=== PATIENT | male | born 1980 | race Caucasian/White ===

== ENCOUNTER 2019-03-14 20:47 | Observation (INO) | payer OTHER, SELFPAY ==
[2019-03-14 20:50] VITALS: BP 128/77; PULSE 123; RESP 33; TEMP 36.9; O2SAT 98; BMI 20.9
--- NOTE | 2019-03-14 21:19 | DI.RAD.S_ITS ---
PROCEDURE: XR CHEST 1V INDICATIONS: chest pain TECHNIQUE: One view of the chest was acquired. COMPARISON: None. FINDINGS: Surgical changes and devices: None. Lungs and pleura: Lungs are clear. No pleural effusions or pneumothorax. Mediastinum: Mediastinal contours appear normal. Heart size is normal. Bones and chest wall: No suspicious bony lesions. Overlying soft tissues appear unremarkable. IMPRESSION: No acute process. Dictated by: Wojciech Norris M.D. on 03/14/2019 at 21:40 Approved by: Wojciech Norris M.D. on 03/14/2019 at 21:40
[2019-03-14 21:27] LABS: Add Manual Diff / Slide Review NO; Basophils Absolute Auto 0 /uL (0-100); Basophils Percent Auto 0.3 % (0-2); Eosinophils Absolute Auto 0 /uL (0-450); Eosinophils Percent Auto 0.1 % (2-4); Hemoglobin 14.4 g/dL (13.5-17.5); Lymphocytes Absolute Auto 200 /uL (1100-4500); Lymphocytes Percent Auto 1.2 % (25-40); Mean Corpuscular HGB Conc 33.5 % (30-36); Mean Corpuscular Hemoglobin 31.4 PG (26-34); Mean Corpuscular Volume 93.5 fL (80-100); Monocytes Absolute Auto 100 /uL (0-900); Monocytes Percent Auto 0.7 % (3-14); Neutrophils Absolute Auto 12400 /uL (1500-7000); Neutrophils Percent Auto 97.7 % (50-75); Platelet Count 114 X10^3/uL (150-400); White Blood Cell Count 12.7 X10^3/uL (4.5-11.0)
--- NOTE | 2019-03-14 21:27 | ED.ARRPALP ---
HPI - Arrhythmia/Palpitations General Chief Complaint: Arrhythmia/Palpitations Stated Complaint: HEART PALPITATIONS, DIZZINESS, SHORT OF BREATH Time Seen by Provider: 03/14/19 20:58 Source: patient Mode of arrival: ambulatory Limitations: no limitations History of Present Illness HPI narrative: Patient is a 38-year-old male with history of depression who presents heart palpitations. He states that 2 days ago the mother of his child said she did not want to be together anymore. He was kicked out of the house. Over the last 2 days he has been intravenously injected phenylethylamine. He has gone through a box of 100 insulin syringes. He says he has been doing every hour. His last use was 2 hours ago. He has been diluting it with water. He has obvious track hyman. He denies any other drug use and previous intravenous drug use. No previous history of suicide. He states he does not want to kill himself now but still feels extremely sad. And is willing and wanting help at this time. MD complaint: rapid heart beat Duration: constant Related Data Allergies Allergy/AdvReac Type Severity Reaction Status Date / Time No Known Drug Allergies Allergy Verified 03/14/19 21:04 Review of Systems Review of Systems ROS Unobtainable: All systems reviewed & are unremarkable except as noted in HPI and below Constitutional Denies chills, Denies fever(s), Denies lethargy and Denies weakness Eyes Denies change in vision, Denies eye discharge, Denies irritation and Denies loss of vision ENT Ears, Nose, Mouth, and Throat: Denies change in voice, Denies neck pain and Denies sore throat Cardiovascular Reports as per HPI, Denies dyspnea and Denies dyspnea on exertion Respiratory Denies cough, Denies dyspnea, Denies dyspnea on exertion and Denies wheezing Gastrointestinal Gastrointestinal: Denies abdominal pain, Denies change in bowel habits, Denies diarrhea, Denies nausea and Denies vomiting Genitourinary Denies hematuria, Denies flank pain, Denies urinary incontinence and Denies urinary urgency Musculoskeletal Denies neck pain Integumentary/Breasts Reports as per HPI Neurologic Denies loss of vision and Denies weakness Psychiatric Reports as per HPI Allergic/Immunologic Denies wheezing [facility] Medical History Depression (Acute) Social History (Updated 03/14/19 @ 21:31 by Denise Su DO) Smoking Status: Current some day smoker substance use type: does not use Social History Smoking Status: Current some day smoker substance use type: does not use Exam Initial Vital Signs Initial Vital Signs: Vital Signs Temperature 98.5 F 03/14/19 20:50 Pulse Rate 123 H 03/14/19 20:50 Respiratory Rate 33 H 03/14/19 20:50 Blood Pressure 128/77 03/14/19 20:50 Pulse Oximetry 98 03/14/19 20:50 GENERAL: Tearful slightly diaphoretic HEENT: Head atraumatic,EOMI, pupils reactive, face symmetric, moist mucous membranes CARDIOVASCULAR: Tachycardic regular, no murmur RESPIRATORY: Breath sounds equal bilaterally, no wheezes rales or rhonchi. ABDOMEN: Soft, nontender. Normoactive bowel sounds all 4 quadrants. No guarding or rebound. EXTREMITIES: Normal range of motion, no clubbing or edema. Neurovascularly intact NEUROLOGICAL: Alert and oriented x4.Normal gait and speech. SKIN: Intravenous track hyman noted on arms and legs no significant erythema no abscess is Course Orders Ordered: ED Orders 03/14/19 21:00 Acetaminophen Stat Complete Blood Count AUTO DIFF Stat Comprehensive Metabolic Panel Stat Ethanol (ETOH) Stat Hepatic (Liver) Panel Stat Lipase Stat Procalcitonin Stat Salicylate Stat Troponin & CK Cardiac Panel Stat 03/14/19 21:19 XR chest 1V Stat 03/14/19 21:30 Lactate (Lactic Acid) Stat 03/14/19 23:00 Urine Drug Screen, Rapid Stat 03/14/19 23:03 Blood Culture Stat 03/15/19 00:30 Alanine Aminotransferase Stat Aspartate Aminotransferase Stat Partial Thromboplastin Time Stat Prothrombin Time INR Stat Troponin I Stat Sodium Chloride (Normal Saline 0.9%) 1,000 mls @ 1,000 mls/hr IV CONT KAREN Last Infusion: 03/14/19 23:01 Dose: 0 mls/hr Admin: 03/14/19 21:34 Dose: 1,000 mls/hr Discontinued Medications Vancomycin HCl (Vancomycin) 1,000 mg in 200 mls @ 200 mls/hr IV NOW ONE Stop: 03/15/19 01:21 Last Admin: 08/28/19 00:33 Dose: 200 mls/hr Lorazepam (Ativan) 1 mg IV NOW ONE Stop: 03/14/19 21:24 Last Admin: 03/14/19 21:33 Dose: 1 mg Consultations Consultation #1: Poison control contacted. His this is a stimulant. Actually is very short-acting if injected intravenously. Recommend watching for a few hours treating with benzos in IV fluids supportive care. Time: 21:32 Vital Signs - 8 hr 03/14/19 20:50 03/14/19 22:40 03/14/19 23:46 Temperature 98.5 F 99.1 F Pulse Rate 123 H 105 H 105 H Respiratory Rate 33 H 16 25 H Blood Pressure 128/77 Blood Pressure [Right Arm] 110/68 116/61 Pulse Oximetry 98 95 100 03/15/19 01:00 03/15/19 01:59 Temperature Pulse Rate 97 H 98 H Respiratory Rate 21 19 Blood Pressure Blood Pressure [Right Arm] 102/57 L 102/57 L Pulse Oximetry 95 MDM - Arrhythmia/Palpitations Lab Data Attestation: I reviewed the patient's lab results. Result diagrams: 03/14/19 21:00 03/14/19 21:00 Lab Results 03/14/19 03/14/19 03/14/19 Range/Units 21:00 21:00 21:00 WBC 12.7 H (4.5-11.0) X10^3/uL RBC 4.60 (4.5-5.9) X10^6/uL Hgb 14.4 (13.5-17.5) g/dL Hct 43.0 (41-53) % MCV 93.5 (80-100) fL MCH 31.4 (26-34) PG MCHC 33.5 (30-36) % RDW 13.0 (11.6-14.8) % Plt Count 114 L (150-400) X10^3/uL Neut % (Auto) 97.7 H (50-75) % Lymph % (Auto) 1.2 L (25-40) % [place] % (Auto) 0.7 L (3-14) % Eos % (Auto) 0.1 L (2-4) % Baso % (Auto) 0.3 (0-2) % Neut # (Auto) 26485 H (2388-1050) /uL Lymph # (Auto) 200 L (9253-8825) /uL [place] # (Auto) 100 (0-900) /uL Eos # (Auto) 0 (0-450) /uL Baso # (Auto) 0 (0-100) /uL PT (10.1-12.7) SECONDS INR (0.9-1.3) APTT (26.4-36.2) SECONDS Sodium 134 L (137-145) mmol/L Potassium 4.5 (3.4-5.1) mmol/L Chloride 101 (98-107) mmol/L Carbon Dioxide 24 (22-32) mmol/L BUN 11 (9-20) mg/dL Creatinine 0.70 (0.66-1.25) mg/dL Estimated GFR > 60.0 (>60) mL/min BUN/Creatinine Ratio 15.7 (6-22) Glucose 115 H (70-100) mg/dL Lactate (0.7-2.1) mmol/L Calcium 8.8 (8.4-10.2) mg/dL Total Bilirubin 0.6 (0.2-1.3) mg/dL Conjugated Bilirubin 0.0 (0.0-0.3) md/dL Unconjugated Bilirubin 0.4 (0.0-1.1) mg/dL AST 84 H (17-59) IU/L ALT 60 (21-72) IU/L Alkaline Phosphatase 65 (38-126) U/L Total Creatine Kinase 294 H (55-170) U/L CK-MB (CK-2) 4.23 H (<2.37) ng/mL CK-MB (CK-2) Rel Index 1.4 L (1.5-5.0) % Troponin I < 0.012 (0.01-0.034) ng/mL Total Protein 6.1 L (6.3-8.2) g/dL Albumin 3.5 (3.5-5.0) g/dL Globulin 2.6 (1.7-4.1) g/dL Albumin/Globulin Ratio 1.3 (1.0-2.8) Lipase 356 H (23-300) U/L Procalcitonin 36.52 H (<0.5) ng/mL Salicylates < 1.0 (<20) mg/dL Urine Opiates Screen (Negative) Ur Oxycodone Screen (Negative) Urine Methadone Screen (Negative) Acetaminophen < 10 L (10-30) ug/mL Ur Barbiturates Screen (Negative) U Tricyclic Antidepress (Negative) Ur Phencyclidine Scrn (Negative) Ur Amphetamines Screen (Negative) U Methamphetamines Scrn (Negative) Ur MDMA Scrn (Ecstasy) (Negative) U Benzodiazepines Scrn (Negative) Urine Cocaine Screen (Negative) U Marijuana (THC) Screen (Negative) Ethyl Alcohol < 10 ( - 10) mg/dL 03/14/19 03/14/19 03/15/19 Range/Units 21:30 23:00 00:30 WBC (4.5-11.0) X10^3/uL RBC (4.5-5.9) X10^6/uL Hgb (13.5-17.5) g/dL Hct (41-53) % MCV (80-100) fL MCH (26-34) PG MCHC (30-36) % RDW (11.6-14.8) % Plt Count (150-400) X10^3/uL Neut % (Auto) (50-75) % Lymph % (Auto) (25-40) % [place] % (Auto) (3-14) % Eos % (Auto) (2-4) % Baso % (Auto) (0-2) % Neut # (Auto) (7047-7038) /uL Lymph # (Auto) (5297-1111) /uL [place] # (Auto) (0-900) /uL Eos # (Auto) (0-450) /uL Baso # (Auto) (0-100) /uL PT 14.9 H (10.1-12.7) SECONDS INR 1.3 (0.9-1.3) APTT 32 (26.4-36.2) SECONDS Sodium (137-145) mmol/L Potassium (3.4-5.1) mmol/L Chloride (98-107) mmol/L Carbon Dioxide (22-32) mmol/L BUN (9-20) mg/dL Creatinine (0.66-1.25) mg/dL Estimated GFR (>60) mL/min BUN/Creatinine Ratio (6-22) Glucose (70-100) mg/dL Lactate 1.6 (0.7-2.1) mmol/L Calcium (8.4-10.2) mg/dL Total Bilirubin (0.2-1.3) mg/dL Conjugated Bilirubin (0.0-0.3) md/dL Unconjugated Bilirubin (0.0-1.1) mg/dL AST (17-59) IU/L ALT (21-72) IU/L Alkaline Phosphatase (38-126) U/L Total Creatine Kinase (55-170) U/L CK-MB (CK-2) (<2.37) ng/mL CK-MB (CK-2) Rel Index (1.5-5.0) % Troponin I (0.01-0.034) ng/mL Total Protein (6.3-8.2) g/dL Albumin (3.5-5.0) g/dL Globulin (1.7-4.1) g/dL Albumin/Globulin Ratio (1.0-2.8) Lipase (23-300) U/L Procalcitonin (<0.5) ng/mL Salicylates (<20) mg/dL Urine Opiates Screen Negative (Negative) Ur Oxycodone Screen Negative (Negative) Urine Methadone Screen Negative (Negative) Acetaminophen (10-30) ug/mL Ur Barbiturates Screen Negative (Negative) U Tricyclic Antidepress Negative (Negative) Ur Phencyclidine Scrn Negative (Negative) Ur Amphetamines Screen Negative (Negative) U Methamphetamines Scrn Negative (Negative) Ur MDMA Scrn (Ecstasy) Negative (Negative) U Benzodiazepines Scrn Positive H (Negative) Urine Cocaine Screen Negative (Negative) U Marijuana (THC) Screen Positive H (Negative) Ethyl Alcohol ( - 10) mg/dL 03/15/19 Range/Units 00:30 WBC (4.5-11.0) X10^3/uL RBC (4.5-5.9) X10^6/uL Hgb (13.5-17.5) g/dL Hct (41-53) % MCV (80-100) fL MCH (26-34) PG MCHC (30-36) % RDW (11.6-14.8) % Plt Count (150-400) X10^3/uL Neut % (Auto) (50-75) % Lymph % (Auto) (25-40) % [place] % (Auto) (3-14) % Eos % (Auto) (2-4) % Baso % (Auto) (0-2) % Neut # (Auto) (6488-3481) /uL Lymph # (Auto) (0642-5897) /uL [place] # (Auto) (0-900) /uL Eos # (Auto) (0-450) /uL Baso # (Auto) (0-100) /uL PT (10.1-12.7) SECONDS INR (0.9-1.3) APTT (26.4-36.2) SECONDS Sodium (137-145) mmol/L Potassium (3.4-5.1) mmol/L Chloride (98-107) mmol/L Carbon Dioxide (22-32) mmol/L BUN (9-20) mg/dL Creatinine (0.66-1.25) mg/dL Estimated GFR (>60) mL/min BUN/Creatinine Ratio (6-22) Glucose (70-100) mg/dL Lactate (0.7-2.1) mmol/L Calcium (8.4-10.2) mg/dL Total Bilirubin (0.2-1.3) mg/dL Conjugated Bilirubin (0.0-0.3) md/dL Unconjugated Bilirubin (0.0-1.1) mg/dL AST 109 H (17-59) IU/L ALT 68 (21-72) IU/L Alkaline Phosphatase (38-126) U/L Total Creatine Kinase (55-170) U/L CK-MB (CK-2) (<2.37) ng/mL CK-MB (CK-2) Rel Index (1.5-5.0) % Troponin I < 0.012 (0.01-0.034) ng/mL Total Protein (6.3-8.2) g/dL Albumin (3.5-5.0) g/dL Globulin (1.7-4.1) g/dL Albumin/Globulin Ratio (1.0-2.8) Lipase (23-300) U/L Procalcitonin (<0.5) ng/mL Salicylates (<20) mg/dL Urine Opiates Screen (Negative) Ur Oxycodone Screen (Negative) Urine Methadone Screen (Negative) Acetaminophen (10-30) ug/mL Ur Barbiturates Screen (Negative) U Tricyclic Antidepress (Negative) Ur Phencyclidine Scrn (Negative) Ur Amphetamines Screen (Negative) U Methamphetamines Scrn (Negative) Ur MDMA Scrn (Ecstasy) (Negative) U Benzodiazepines Scrn (Negative) Urine Cocaine Screen (Negative) U Marijuana (THC) Screen (Negative) Ethyl Alcohol ( - 10) mg/dL Urine Dip Bedside Urine Glucose Negative Bedside Urine Ketone - Negative Urine Specific Brow[place] 1.010 Bedside Urine Occult Blood - Negative Bedside Urine pH 6.0 Bedside Urine Protein - Negative Bedside Urine Urobilinogen - Negative Bedside Urine Nitrite - Negative Bedside Urine Leukocytes - Negative Esterase MDM Narrative Medical decision making narrative: Patient is actually quite tachycardic and upset initially. This is possibly emotional and drug use related. His heart rate improved with IV fluids and 1 dose of Ativan. At this time he does not need any sort of involuntary criteria, he is requesting help and willing and able to go to mental health facility once medically cleared. The patient has mild leukocytosis of 12 temperature is slowly rising but still remained afebrile he still appears slightly diaphoretic procalcitonin significantly elevated at 36. Patient is extremely high risk for bacteremia. He has had multiple injections over 100 in the last all 2 days. He has also been mixing this powder with water. Flory BLANC, has been updated on patient's symptoms test results. I expressed my concern for possible bacteremia with history and significant procalcitonin. She requests repeat AST, ALT and troponin be checked prior to admission. I have done these and called and updated her on results. AST has slightly elevated from 84-109 however ALT has remained about the same. Patient remained stable heart rate has improved to the 90s blood pressure remains to with a systolic in the low 100s. She agrees to observation. Discharge Plan Departure Patient Disposition: Admitted as Observation Clinical Impression: SIRS (systemic inflammatory response syndrome) Overdose Qualifiers: Encounter type: initial encounter Injury intent: intentional self-harm Qualified Code(s): T50.902A - Poisoning by unspecified drugs, medicaments and biological substances, intentional self-harm, initial encounter Admit Date/Time: 03/15/19 01:22 Admit Provider: Samson Ruth
[2019-03-14] MEDS: LORazepam 2 MG/ML INJ 1 MG IV (21:33)
[2019-03-14 21:34] LABS: Alanine Aminotransferase 60 IU/L (21-72); Albumin 3.5 g/dL (3.5-5.0); Albumin Globulin Ratio 1.3 (1.0-2.8); Alkaline Phosphatase 65 U/L (38-126); Aspartate Aminotransferase 84 IU/L (17-59); BUN Creatinine Ratio 15.7 (6-22); Bilirubin Total 0.6 mg/dL (0.2-1.3); Bilirubin Unconjugated 0.4 mg/dL (0.0-1.1); Blood Urea Nitrogen 11 mg/dL (9-20); Calcium 8.8 mg/dL (8.4-10.2); Carbon Dioxide 24 mmol/L (22-32); Chloride 101 mmol/L (98-107); Creatine Kinase 294 U/L (55-170); Estimated Glomerular Filt Rate > 60.0 mL/min (>60); Globulin 2.6 g/dL (1.7-4.1); Glucose 115 mg/dL (70-100); HEMOLYSIS 19 (0-50); Lipase 356 U/L (23-300); Potassium 4.5 mmol/L (3.4-5.1); Sodium 134 mmol/L (137-145); Total Protein 6.1 g/dL (6.3-8.2)
[2019-03-14] MEDS: SODIUM CHLORIDE 0.9% 1,000 ML 1000 ML IV (21:34)
[2019-03-14 21:41] LABS: Acetaminophen < 10 ug/mL (10-30); Ethanol (ETOH) < 10 mg/dL; Salicylate < 1.0 mg/dL (<20)
[2019-03-14 21:44] LABS: Lactate (Lactic Acid) 1.6 mmol/L (0.7-2.1)
[2019-03-14 21:44] LABS: Troponin I < 0.012 ng/mL (0.01-0.034)
[2019-03-14 21:54] LABS: Procalcitonin 36.52 ng/mL (<0.5)
[2019-03-14 21:55] LABS: CKMB % Relative Index 1.4 % (1.5-5.0); Creatine Kinase MB 4.23 ng/mL (<2.37)
[2019-03-14 22:40] VITALS: BP 110/68; PULSE 105; RESP 16; TEMP 37.3; O2SAT 95
[2019-03-14 23:14] LABS: Urine Amphetamines Negative (Negative); Urine Barbiturates Negative (Negative); Urine Benzodiazepines Positive (Negative); Urine Cocaine Negative (Negative); Urine MDMA Negative (Negative); Urine Methadone Negative (Negative); Urine Methamphetamines Negative (Negative); Urine Morphine/Opi cutoff 2000 Negative (Negative); Urine Oxycodone Negative (Negative); Urine Phencyclidine Negative (Negative); Urine Tetrahydrocannabinol Positive (Negative); Urine Tricyclic Antidepressant Negative (Negative)
[2019-03-14 23:46] VITALS: BP 116/61; PULSE 105; RESP 25; O2SAT 100
[2019-03-15] VITALS (8 sets, daily range): BP systolic 99–140; BP diastolic 45–60; PULSE 81–98; RESP 18–21; TEMP 36.8–38; O2SAT 95–99; BMI 20.5
[2019-03-15] MEDS: VANCOMYCIN 1,000 MG/200 ML PIGGYBACK 200 MG IV (00:33)
[2019-03-15 00:53] LABS: INR 1.3 (0.9-1.3); Prothrombin Time 14.9 SECONDS (10.1-12.7)
[2019-03-15 00:55] LABS: PTT Partial Thromboplastin Tim 32 SECONDS (26.4-36.2)
[2019-03-15 00:56] LABS: Alanine Aminotransferase 68 IU/L (21-72)
[2019-03-15 01:09] LABS: Troponin I < 0.012 ng/mL (0.01-0.034)
[2019-03-15 01:38] LABS: Aspartate Aminotransferase 109 IU/L (17-59)
--- NOTE | 2019-03-15 03:18 | PC.NURSE ---
NOC Shift: Pt admitted thru ED for SOB, fever following admitting injecting self for days with an ingestable compound used for mood elevation. Admits to feeling depressed and if he giving himself injections he wouldn't mind. States he wants help with his depression. VSS, NSR low grade fever. Has elevated WBC's. Has swollen, reddened inner lower forearms, multiple needle hyman on inner thighs, arms. On suicide watch per [employer] orders.
--- NOTE | 2019-03-15 03:34 | P.HP_ITS ---
History of Present Illness Date Patient Seen: 03/15/19 Time Patient Seen: 03:23 Chief complaint: HEART PALPITATIONS, DIZZINESS, SHORT OF BREATH Narrative: The patient is a 38-year-old male with PMH of depression and ADD. Patient presents out of concern for palpitations. Symptom onset immediately prior to ED presentation. Patient states that for the past 2 days he has been injecting phenylethylamine (via IV route) into both upper and lower extremity. Reported to have used 100 insulin syringes over the past 2 days. Patient states that he was feeling sad because he got kicked out of the house by his significant other. Denies wanting to harm self. Reports injecting pheny lethylamine to take away the sadness. Reports developing palpitations. States, I did not want to as reason for seeking evaluation. Associated symptoms included abdominal pain and dizziness. Denies nausea, vomiting, and GI distress. He has also not experienced chest pain, dyspnea, syncopal events, joint and muscle pain. Denies similar acts in the past. Denies harmful ideation toward self. Patient does admit to longstanding depression. He was started on an antidepressant 2-3 months ago. Currently unemployed. Smokes less than 5 cigarettes per week. Admits to occasional alcohol use without prior history of alcohol abuse. Admits to occasional use of cannabis. Currently unemployed, previously worked seen [employer]. Patient History Medical History ADD (attention deficit disorder) (Acute) Depression (Acute) Surgical History (Updated 03/15/19 @ 03:54 by GUANACO Novoa) History of appendectomy (Chronic) Family History (Updated 03/15/19 @ 03:54 by GUANACO Novoa) Mother No known health problems Father No known health problems Social History household members: significant other Smoking Status: Current some day smoker substance use type: does not use Family & Social History Family History (Updated 03/15/19 @ 03:54 by GUANACO Novoa) Mother No known health problems Father No known health problems Social History: household members significant other, recently kicked out Prior Living Arrangements House Safety & Behavioral: Feels Safe in Current Yes Environment Been Physically Hurt or No Threatened By a Person Suicidal Ideation Description Vague Suicide Plan Description No Plan Tobacco & Substance use: Tobacco type cigarettes less than 5 per week,cannabis/marijuana occasionally Smoking Status Current some day smoker alcohol intake frequency holiday/special occasion Substance Use Type marijuana Meds Allergies Allergy/AdvReac Type Severity Reaction Status Date / Time No Known Drug Allergies Allergy Verified 03/14/19 21:04 Review of Systems Review of Systems All systems reviewed & are unremarkable except as noted in HPI and below Exam Vital Signs (past 8 hours): - 03/14/19 20:50 03/14/19 22:40 03/14/19 23:46 Temperature 98.5 F 99.1 F Pulse Rate 123 H 105 H 105 H Respiratory Rate 33 H 16 25 H Blood Pressure 128/77 Blood Pressure [Right Arm] 110/68 116/61 Pulse Oximetry 98 95 100 03/15/19 01:00 03/15/19 01:59 03/15/19 02:35 Temperature 99.6 F Pulse Rate 97 H 98 H 85 Respiratory Rate 21 19 21 Blood Pressure 111/60 Blood Pressure [Right Arm] 102/57 L 102/57 L Pulse Oximetry 95 03/15/19 02:57 Temperature Pulse Rate Respiratory Rate Blood Pressure Blood Pressure [Right Arm] Pulse Oximetry 99 Oxygen Delivery Method Room Air Narrative Exam Narrative: onstitutional: NAD, diaphoretic Neurologic: Somnolent, awakens easily to verbal stimuli, oriented x3, no focal neurological deficits Head: NC, AT Eyes: PERRL, EOMI, Ears: external ears normal, no otorrhea Nose: external nose normal, no rhinorrhea or epistaxis Throat: MMM, oropharynx w/o exudate Neck: no masses, lymphadenopathy, or JVD Chest / Respiratory: equal chest rise, unlabored respiratory effort, no tachypnea, CTAB, on room air Heart / CV: S1S2, no murmur Abdomen / GI: round, NT, ND, + BS, no organomegaly : no suprapubic tenderness Peripheral / Vascular: No lower extremity edema, by pedal pulses palpable, extremities warm to touch Extremities: Both forearms are edematous, right greater than left, track hyman noted, there is degree of induration and erythema (worse on the right) Musc: full ROM of upper and lower extremities, adequate muscle tone and bulk Skin: no ecchymosis or suspicious lesions / ulcers Objective Labs Result Diagrams: 03/14/19 21:00 03/14/19 21:00 Labs: Laboratory Results - last 24 hr 03/14/19 03/14/19 03/14/19 21:00 21:00 21:00 WBC 12.7 H RBC 4.60 Hgb 14.4 Hct 43.0 MCV 93.5 MCH 31.4 MCHC 33.5 RDW 13.0 Plt Count 114 L Neut % (Auto) 97.7 H Lymph % (Auto) 1.2 L [place] % (Auto) 0.7 L Eos % (Auto) 0.1 L Baso % (Auto) 0.3 Neut # (Auto) 43980 H Lymph # (Auto) 200 L [place] # (Auto) 100 Eos # (Auto) 0 Baso # (Auto) 0 PT INR APTT Sodium 134 L Potassium 4.5 Chloride 101 Carbon Dioxide 24 BUN 11 Creatinine 0.70 Estimated GFR > 60.0 BUN/Creatinine Ratio 15.7 Glucose 115 H Lactate Calcium 8.8 Total Bilirubin 0.6 Conjugated Bilirubin 0.0 Unconjugated Bilirubin 0.4 AST 84 H ALT 60 Alkaline Phosphatase 65 Total Creatine Kinase 294 H CK-MB (CK-2) 4.23 H CK-MB (CK-2) Rel Index 1.4 L Troponin I < 0.012 Total Protein 6.1 L Albumin 3.5 Globulin 2.6 Albumin/Globulin Ratio 1.3 Lipase 356 H Procalcitonin 36.52 H Salicylates < 1.0 Urine Opiates Screen Ur Oxycodone Screen Urine Methadone Screen Acetaminophen < 10 L Ur Barbiturates Screen U Tricyclic Antidepress Ur Phencyclidine Scrn Ur Amphetamines Screen U Methamphetamines Scrn Ur MDMA Scrn (Ecstasy) U Benzodiazepines Scrn Urine Cocaine Screen U Marijuana (THC) Screen Ethyl Alcohol < 10 03/14/19 03/14/19 03/15/19 21:30 23:00 00:30 WBC RBC Hgb Hct MCV MCH MCHC RDW Plt Count Neut % (Auto) Lymph % (Auto) [place] % (Auto) Eos % (Auto) Baso % (Auto) Neut # (Auto) Lymph # (Auto) [place] # (Auto) Eos # (Auto) Baso # (Auto) PT 14.9 H INR 1.3 APTT 32 Sodium Potassium Chloride Carbon Dioxide BUN Creatinine Estimated GFR BUN/Creatinine Ratio Glucose Lactate 1.6 Calcium Total Bilirubin Conjugated Bilirubin Unconjugated Bilirubin AST ALT Alkaline Phosphatase Total Creatine Kinase CK-MB (CK-2) CK-MB (CK-2) Rel Index Troponin I Total Protein Albumin Globulin Albumin/Globulin Ratio Lipase Procalcitonin Salicylates Urine Opiates Screen Negative Ur Oxycodone Screen Negative Urine Methadone Screen Negative Acetaminophen Ur Barbiturates Screen Negative U Tricyclic Antidepress Negative Ur Phencyclidine Scrn Negative Ur Amphetamines Screen Negative U Methamphetamines Scrn Negative Ur MDMA Scrn (Ecstasy) Negative U Benzodiazepines Scrn Positive H Urine Cocaine Screen Negative U Marijuana (THC) Screen Positive H Ethyl Alcohol 03/15/19 00:30 WBC RBC Hgb Hct MCV MCH MCHC RDW Plt Count Neut % (Auto) Lymph % (Auto) [place] % (Auto) Eos % (Auto) Baso % (Auto) Neut # (Auto) Lymph # (Auto) [place] # (Auto) Eos # (Auto) Baso # (Auto) PT INR APTT Sodium Potassium Chloride Carbon Dioxide BUN Creatinine Estimated GFR BUN/Creatinine Ratio Glucose Lactate Calcium Total Bilirubin Conjugated Bilirubin Unconjugated Bilirubin AST 109 H ALT 68 Alkaline Phosphatase Total Creatine Kinase CK-MB (CK-2) CK-MB (CK-2) Rel Index Troponin I < 0.012 Total Protein Albumin Globulin Albumin/Globulin Ratio Lipase Procalcitonin Salicylates Urine Opiates Screen Ur Oxycodone Screen Urine Methadone Screen Acetaminophen Ur Barbiturates Screen U Tricyclic Antidepress Ur Phencyclidine Scrn Ur Amphetamines Screen U Methamphetamines Scrn Ur MDMA Scrn (Ecstasy) U Benzodiazepines Scrn Urine Cocaine Screen U Marijuana (THC) Screen Ethyl Alcohol Assessment & Plan Assessment & Plan narrative: Patient is being admitted for unintentional drug overdose, SIRS w/ concern for sepsis. SIRS, acute, present on admission, active - WBC 12.7 PCT 36.52, concern for developing bacteremia / sepsis - Blood cx collected in the ED, results pending, to be followed - Cxr unremarkable - Patient started on vancomycin in lieu of significantly elevated PCT level Sinus tachycardia, acute, present on admission, active Secondary to phenylethylamine use. Adverse effect of drug overdose. - responding to aggressive IV fluid hydration Unintentional drug overdose, acute, present on admission, active - poison Control notified in the ED, recommendations for supportive care Bilateral UE cellulitis, acute, present on admission, active Secondary to repeated IV injections. Concern for developing cellulitis. - see plan of care fro SIRS / sepsis - supportive care: elevate extremities, ice x20 min Q1H Depression w/ anxiety, acute exacerbation of chronic condition, present on admission, active - suicidal precautions - consult Psychiatry Code status discussed with patient. Wishes to be full code. Designates (Chadjocelyn) his significant other as a surrogate decision maker. Home medications reviewed and reconciled. He is on an antidepressant, vitamin-C supplement and MTW/nutrient complex. Home medications will be held at this time. VTE prophylaxis with SCDs. Quality VTE Deep Vein Thrombosis/Pulmonary Embolism Present on Admission: No
[2019-03-15] MEDS: SODIUM CHLORIDE 0.9% 1,000 ML 125 ML IV (03:41)
[2019-03-15 06:18] LABS: INR 1.4 (0.9-1.3); PTT Partial Thromboplastin Tim 32 SECONDS (26.4-36.2); Prothrombin Time 15.9 SECONDS (10.1-12.7)
[2019-03-15 06:20] LABS: Alanine Aminotransferase 62 IU/L (21-72); Albumin 2.9 g/dL (3.5-5.0); Albumin Globulin Ratio 1.3 (1.0-2.8); Alkaline Phosphatase 53 U/L (38-126); Aspartate Aminotransferase 82 IU/L (17-59); BUN Creatinine Ratio 12.9 (6-22); Bilirubin Total 0.3 mg/dL (0.2-1.3); Blood Urea Nitrogen 9 mg/dL (9-20); Carbon Dioxide 27 mmol/L (22-32); Chloride 106 mmol/L (98-107); Estimated Glomerular Filt Rate > 60.0 mL/min (>60); Globulin 2.3 g/dL (1.7-4.1); Glucose 112 mg/dL (70-100); HEMOLYSIS < 15 (0-50); Potassium 3.8 mmol/L (3.4-5.1); Sodium 137 mmol/L (137-145); Total Protein 5.2 g/dL (6.3-8.2)
[2019-03-15 06:49] LABS: Creatine Kinase 178 U/L (55-170)
[2019-03-15 07:02] LABS: Troponin I 0.016 ng/mL (0.01-0.034)
[2019-03-15 07:04] LABS: CKMB % Relative Index 1.4 % (1.5-5.0); Creatine Kinase MB 2.42 ng/mL (<2.37)
--- NOTE | 2019-03-15 08:15 | CM.DPNOTE ---
DCP: note: case received, EMR reviewed. Consult to social sciences research scientist is noted by the admitting RN although this does not show up on the CM caseload list for today. Consult is related to pt's desire for INPT treatment for depression and his acknowledgement of suicidal thoughts over the last 2 days along with hourly IV drug use in these 2 days and events that have unfolded in his home life (per the ER physician notes). Have alerted CMsp and DCPlanner: LUIS A Napier. Quyen agrees to review the case.
--- NOTE | 2019-03-15 08:33 | PC.NURSE ---
pt alert/oriented and becoming increasingly anxious r/t his usual am meds which he states he takes at 0600- no current in-pt orders other than ibuprofen and ivf at this time- he also wishes to leave and smoke- declined patch and explained [facility] is no-smoking facility- call to case chandan and update to Dr. Suarez
[2019-03-15] MEDS: SODIUM CHLORIDE 0.9% 1,000 ML 150 ML IV (10:23)
--- NOTE | 2019-03-15 11:50 | PC.NURSE ---
pt left AMA despite being instructed on his insurance and abrasive grinder visit and plan of care- left hospital at [facility] time
[2019-03-15 13:42] LABS: Acinetobacter baumannii Not Detected (Not Detect); Candida albicans Not Detected (Not Detect); Candida glabrata Not Detected (Not Detect); Candida krusei Not Detected (Not Detect); Candida parapsilosis Not Detected (Not Detect); Candida tropicalis Not Detected (Not Detect); E. coli Not Detected (Not Detect); Enterobacter cloacae complex Not Detected (Not Detect); Enterobacteriaceae species Not Detected (Not Detect); Enterococcus species Not Detected (Not Detect); Haemophilus influenzae Not Detected (Not Detect); KPC (carbapenem-resist gene) Not Detected (Not Detect); Listeria monocytogenes Not Detected (Not Detect); Methicillin-resistant gene Not Detected (Not Detect); Neisseria meningitidis Not Detected (Not Detect); Proteus species Not Detected (Not Detect); Pseudomonas aeruginosa Not Detected (Not Detect); Serratia marcescens Not Detected (Not Detect); Staphylococcus species Not Detected (Not Detect); Streptococcus agalactiae (Gr B Not Detected (Not Detect); Streptococcus pneumonia Not Detected (Not Detect); Streptococcus pyogenes (Gr A) Not Detected (Not Detect); Streptococcus species Not Detected (Not Detect); Vancomycin-rest genes A/B Not Detected (Not Detect)
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
== END 2019-03-15 11:25 | disposition left against medical advice (07) | DRG 918 ==
LOC: ED 03-15 01:21 → ICU 03-15 10:08 → AC 08-10 10:24
PROVIDERS: Admitting Provider Nurse Practitioner Gerontology; Emergency Provider Emergency Medicine; Visit Provider Nurse Practitioner Gerontology
DX: R65.10 Systemic inflammatory response syndrome (SIRS) of non-infectious origin without acute organ dysfunction (principal); R00.2 Palpitations; R00.0 Tachycardia, unspecified; T42.3X1A Poisoning by barbiturates, accidental (unintentional), initial encounter; L03.114 Cellulitis of left upper limb; L03.113 Cellulitis of right upper limb; F32.9 Major depressive disorder, single episode, unspecified; F41.9 Anxiety disorder, unspecified; Z53.21 Procedure and treatment not carried out due to patient leaving prior to being seen by health care provider; Z72.0 Tobacco use
CPT/HCPCS: 36415; 36591; 71045; 80053; 80076; 80305; 80320; 80329; 81003; 82550; 82553; 83605; 83690; 83735; 84145; 84450; 84460; 84484; 85025; 85610; 85730; 87040; 87150; 87205; 87797; 93005; 96361; 96365; 96375; 99284; 99285; G0378; G0480; J2060

== ENCOUNTER 2024-12-16 07:54 | Emergency (ER) | payer SELFPAY ==
[2019-03-15 01:31] VITALS: BMI 20.5
[2024-12-16] VITALS (15 sets, daily range): BP systolic 130–157; BP diastolic 82–102; PULSE 78–115; RESP 12–22; TEMP 36.7; O2SAT 96–100; BMI 22.3
[2024-12-16] MEDS: HYDROMORPHONE 1 MG INJ IV ×3 (08:31→12:39)
[2024-12-16] MEDS: LIDOCAINE JELLY 2% 5 ML 1 APPLIC TOP (11:50)
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
--- NOTE | 2024-12-16 13:20 | PC.WOUNDPHOT ---
all images were sent to through Email at [email or web address].
[2024-12-16] MEDS: BACITRACIN OINT 0.9 GM PCKT 4 APPLIC TOP (14:00)
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
== END 2024-12-16 15:18 | disposition home or self-care (01) ==
PROVIDERS: Emergency Provider Student in an Organized Health Care Education/Training Program
DX: T23.232A Burn of second degree of multiple left fingers (nail), not including thumb, initial encounter (principal); T25.222A Burn of second degree of left foot, initial encounter; X08.8XXA Exposure to other specified smoke, fire and flames, initial encounter; Z23 Encounter for immunization
CPT/HCPCS: 16020; 90471; 96374; 96376; 99284; J1171